=== PATIENT | female | born 1955 | race Caucasian/White ===

== ENCOUNTER 2023-11-17 10:07 | Outpatient (CLI) | payer MEDICARE ==
[2023-11-17] MEDS ORDERED: Iopamidol 300 61% 100 ML VIAL FS ONE (12:18)
== END 2023-11-17 10:08 | disposition home or self-care (01) ==
LOC: CSHCT 10:07
PROVIDERS: ATTEND Physician Assistant Medical
DX: R10.9 Unspecified abdominal pain (principal); R19.4 Change in bowel habit; Z86.19 Personal history of other infectious and parasitic diseases
CPT/HCPCS: 74177; 82565; Q9967

== ENCOUNTER 2024-09-29 08:17 | Outpatient (CLI) | payer MEDICARE | END 2024-09-29 08:18 | disposition home or self-care (01) | LOC: CSHMRI 08:17 | PROVIDERS: ATTEND Orthopaedic Surgery | DX: S83.207A Unspecified tear of unspecified meniscus, current injury, left knee, initial encounter (principal); M17.12 Unilateral primary osteoarthritis, left knee; M25.562 Pain in left knee ==